=== PATIENT | male | born 1940 | race Caucasian/White ===

== ENCOUNTER 2016-08-30 04:16 | Emergency (ER) | payer MEDICARE ==
[2016-08-30 05:03] LABS: ABSOLUTE NEUTROPHIL COUNT 9.6 K/mm3 (1.8-7.7); BASO # 0.1 K/mm3 (0.0-0.2); BASO % 0.7 % (0.2-1.0); EOS # 0.2 (0.0-0.5); EOS % 1.6 % (0.9-2.9); HEMATOCRIT 42.5 % (32.0-52.0); HEMOGLOBIN 13.6 gm/l (14.0-18.0); IMM NEUT% 0.2 % (0-1); LYMPH # 2.1 (1.0-4.8); LYMPH % 15.6 % (15-45); MEAN CELL VOLUME 88.9 fl (80.0-94.0); MEAN CORPUSCULAR HEMOGLOBIN 28.5 pg (27.0-31.0); MEAN PLATELET VOLUME 11.9 fl (7.4-10.4); MONO # 1.3 (0.0-0.8); MONO % 9.5 % (4-12); NEUT % 72.4 % (43-75); PLATELET COUNT 234 K/mm3 (130-400); RED CELL DISTRIBUTION WIDTH 14.2 % (11.5-14.5)
[2016-08-30 05:10] LABS: INR 3.03; PROTHROMBIN TIME 33.7 SECONDS (9.3-11.4)
[2016-08-30 05:14] LABS: CALCIUM 9.2 mg/dL (8.6-10.3)
== END 2016-08-30 07:58 | disposition home or self-care (01) ==
LOC: ED 04:16
DX: L76.22 Postprocedural hemorrhage of skin and subcutaneous tissue following other procedure (principal); Y83.2 Surgical operation with anastomosis, bypass or graft as the cause of abnormal reaction of the patient, or of later complication, without mention of misadventure at the time of the procedure